=== PATIENT | male | born 1955 | race Caucasian/White ===

== ENCOUNTER 2020-12-04 21:56 | Emergency (ER) | payer BC ==
[~2020-12-04] VITALS: Ht 182.9 cm; Wt 115.9 kg
[2020-12-04] MEDS ORDERED: PLAVIX75 MG PO (22:55)
[2020-12-04] MEDS ORDERED: ZESTRIL5 M1 PO (22:56)
[2020-12-04] MEDS ORDERED: XANAX0.25 MG PO (22:57)
[2020-12-04] MEDS ORDERED: COREG3.125 MG PO (22:57)
[2020-12-04] MEDS ORDERED: CEPHALEXIN500 MG PO (22:58)
[2020-12-04 23:27] VITALS: BP 147/88
== END 2020-12-04 23:27 | disposition home or self-care (01) | DRG 125 ==
LOC: ED 21:56
DX: H00.015 Hordeolum externum left lower eyelid (principal); I42.9 Cardiomyopathy, unspecified; I10 Essential (primary) hypertension